=== PATIENT | male | born 1970 | race Caucasian/White ===

== ENCOUNTER 2016-12-24 15:10 | Emergency (ER) | payer OTHER, MEDICAID ==
[2016-12-24 15:37] VITALS: RESP 16; TEMP 98.2
[2016-12-24] MEDS ORDERED: Albuterol-Ipratrop 3 mg / 0.5 (3 ml) UD INH STA (16:04)
[2016-12-24] MEDS ORDERED: Sodium Chloride 0.9% 1,000 ML IV STA (16:04)
--- NOTE | 2016-12-24 16:10 | ED PDOC ---
HPI: CCC, URI, Sore Throat Time Seen by Provider: 12/24/16 15:46 Chief Complaint (Nursing): Cough, Cold, Congestion Chief Complaint (Provider): cough History Per: Patient Additional Complaint(s): 46 year old male with history of HIV (compliant with daily meds) presents to ED with cough for 2 weeks. Patient has chest pain when excessively coughing but denies chest pain otherwise. No recent travel or known sick contacts. Patient states initially for the first few days, cough was productive of yellow and green sputum but over the past few days, cough has been dry. Patient states he has had subjective fever but has not measured temp. Past Medical History Reviewed: Historical Data Vital Signs: Last Vital Signs Temp 98.2 F 12/24/16 15:34 Pulse 72 12/24/16 15:34 Resp 16 12/24/16 15:34 BP 140/66 12/24/16 15:34 Pulse Ox 100 12/24/16 18:13 - Medical History PMH: Anxiety, Bipolar Disorder, Depression, HIV, Hypercholesterolemia - Surgical History Other surgeries: right knee surgery - Family History Family History: States: No Known Family Hx - Living Arrangements Living Arrangements: With Family - Social History Current smoker - smoking cessation education provided: Yes (1 ppd) Alcohol: Social Drugs: Denies - Home Medications Home Medications: Ambulatory Orders Medication Instructions Recorded Efavirenz/Emtricitab/Tenofovir 1 tab PO DAILY 11/24/15 [Atripla Tablet] Rosuvastatin Calcium [Crestor] 20 mg PO DAILY #0 tab 11/24/15 Doxepin [Sinequan] 100 mg PO HS #0 cap 12/04/15 Sertraline [Zoloft] 50 mg PO DAILY #14 tab 12/04/15 Sertraline [Zoloft] 100 mg PO DAILY #14 tab 12/04/15 Albuterol HFA [Ventolin HFA 90 1 puff IH ASDIR #1 unit 12/24/16 mcg/actuation (8 g)] Benzonatate 200 mg PO TID PRN #20 capsule 12/24/16 Levofloxacin [Levaquin] 500 mg PO DAILY #7 tablet 12/24/16 - Allergies Allergies/Adverse Reactions: Allergies Allergy/AdvReac Type Severity Reaction Status Date / Time efavirenz [From Sustiva] Allergy RASH Verified 12/24/16 15:34 morphine Allergy RASH Verified 12/24/16 15:34 Curb-65 Severity Score - CURB-65 Severity Score Confusion: No Respiratory Rate greater than/equal to 30: No Systolic BP <90 or Diastolic BP less than/equal 60mmHg: No Age >64: No Curb-65 Score: 0 Percentage 30-day mortality: 0.6% Review of Systems ROS Statement: Except As Marked, All Systems Reviewed And Found Negative Constitutional: Positive for: Fever (subjective, not measured) Cardiovascular: Positive for: Chest Pain (due to cough) Respiratory: Positive for: Cough, Sputum Gastrointestinal: Negative for: Nausea, Vomiting Neurological: Negative for: Headache, Dizziness Physical Exam - Reviewed Nursing Documentation Reviewed: Yes Vital Signs Reviewed: Yes - Physical Exam Appears: Positive for: Well, Non-toxic, No Acute Distress Head Exam: Positive for: ATRAUMATIC, NORMAL INSPECTION Skin: Negative for: Rash Eye Exam: Positive for: Normal appearance, EOMI, PERRL ENT: Positive for: Normal ENT Inspection Cardiovascular/Chest: Positive for: Regular Rate, Rhythm Respiratory: Positive for: Wheezing. Negative for: Accessory Muscle Use, Rales , Rhonchi, Respiratory Distress Gastrointestinal/Abdominal: Positive for: Soft. Negative for: Tenderness, Distended, Guarding, Rebound Back: Negative for: L CVA Tenderness, R CVA Tenderness Neurologic/Psych: Positive for: Alert, Oriented - Laboratory Results Result Diagrams: 12/24/16 16:18 12/24/16 16:18 - ECG Interpretation Of ECG: NSR 62 bpm, no acute finding, reviewed by PA and ED attending. O2 Sat by Pulse Oximetry: 100 Pulse Ox Interpretation: Normal - Other Rad CXR X-Ray: Interpreted by Me, Viewed By Me X-Ray Interpretation: no acute finding Nebulizer Treatments/Peak Flow - Duonebs Number of Bronchodilator Doses given?: 1 (duoneb) - Steroid Treatment Steroid: Not Clinically Indicated - Clinical Response Clinical Response: Improved Medical Decision Making Medical Decision Makin46 year old with cough for 2 weeks Plan: CXR EKG CBC CMP Blood cultures IVF Duoneb x 1 Patient is aware of all diagnostic testing results, all questions answered. Patient given prescriptions for Levaquin, Ventolin inhaler and Tessalon Perles. He was advised to drink plenty of fluids and take NSAIDs for fever and bodyaches as needed. Patient was instructed to follow up with PMD in 1-2 days and he is aware he can RTED at any time if acutely worse. Disposition - Clinical Impression Clinical Impression: Bronchitis - Patient ED Disposition Is Patient to be Admitted: No Counseled Patient/Family Regarding: Studies Performed, Diagnosis, Need For Followup, Rx Given - Disposition Referrals: Hossein Linton MD [Family Provider] - Disposition: Routine/Home Disposition Time: 18:12 Condition: STABLE Additional Instructions: Take prescription medications as directed. [id number] Tylenol or Advil as needed for fever and body aches. Rest and drink plenty of fluids. Follow-up with primary doctor in 2-3 days. Prescriptions: Albuterol HFA [Ventolin HFA 90 mcg/actuation (8 g)] 1 puff IH ASDIR #1 unit Benzonatate 200 mg PO TID PRN #20 capsule PRN Reason: Cough Levofloxacin [Levaquin] 500 mg PO DAILY #7 tablet Instructions: Acute Bronchitis (ED) Forms: [facility] ED School/Work Excuse Results - Lab Results Lab Results: 12/24/16 12/24/16 16:18 16:18 WBC 4.8 RBC 4.73 Hgb 14.0 Hct 41.6 MCV 87.9 D MCH 29.5 MCHC 33.6 RDW 14.8 H Plt Count 221 MPV 7.7 Neut % (Auto) 60.1 Lymph % (Auto) 21.1 Cooke % (Auto) 8.6 Eos % (Auto) 9.7 H Baso % (Auto) 0.5 Neut # 2.9 Lymph # 1.0 Cooke # 0.4 Eos # 0.5 Baso # 0.0 Sodium 143 Potassium 4.0 Chloride 108 H Carbon Dioxide 24 Anion Gap 15 BUN 19 Creatinine 0.9 Est GFR ( Amer) > 60 Est GFR (Non-Af Amer) > 60 Random Glucose 98 Calcium 9.7 Total Bilirubin 0.2 AST 31 ALT 51 Alkaline Phosphatase 53 Total Protein 7.1 Albumin 4.0 Globulin 3.1 Albumin/Globulin Ratio 1.3
--- NOTE | 2016-12-24 16:44 | RAD ---
HISTORY: cough COMPARISON: Chest x-ray performed 11/24/15 TECHNIQUE: Chest PA and lateral FINDINGS: LUNGS: No focal consolidation. Please note that chest x-ray has limited sensitivity for the detection of pulmonary masses. PLEURA: No significant pleural effusion identified. No definite pneumothorax . CARDIOVASCULAR: The cardiomediastinal silhouette appears within normal limits of size. OSSEOUS STRUCTURES: No acute osseous abnormality identified. VISUALIZED UPPER ABDOMEN: Unremarkable. OTHER FINDINGS: None. IMPRESSION: No focal consolidation, significant pleural effusion, or definite pneumothorax identified.
[2016-12-24 16:47] LABS: BASO % 0.5 % (0.0-2.0); EOS # 0.5 K/uL (0.0-0.7); EOS % 9.7 % (0.0-4.0); HEMATOCRIT 41.6 % (35.0-51.0); LYMPH % 21.1 % (20.0-40.0); MEAN CELL VOLUME 87.9 fl (80.0-94.0); MEAN CORPUSCULAR HEMOGLOBIN 29.5 pg (27.0-31.0); MEAN CORPUSCULAR HGB CONC 33.6 g/dL (33.0-37.0); MEAN PLATELET VOLUME 7.7 fl (7.2-11.7); MONO # 0.4 K/uL (0.0-0.8); MONO % 8.6 % (0.0-10.0); NEUT # 2.9 K/uL (1.8-7.0); NEUT % 60.1 % (50.0-75.0); NRBC % 0.1 % (0.0-0.0); RED CELL DISTRIBUTION WIDTH 14.8 % (11.5-14.5); WHITE BLOOD COUNT 4.8 K/uL (4.8-10.8)
[2016-12-24 17:12] LABS: ALB/GLOB RATIO 1.3 (1.0-2.1); ALKALINE PHOSPHATASE 53 U/L (38-126); ALT/SGPT 51 U/L (21-72); AST/SGOT 31 U/L (17-59); BILIRUBIN,TOTAL 0.2 mg/dl (0.2-1.3); BLOOD UREA NITROGEN 19 mg/dl (9-20); CALCIUM 9.7 mg/dL (8.4-10.2); CARBON DIOXIDE 24 mmol/L (22-30); CHLORIDE 108 mmol/L (98-107); GFR AFRICAN-AMERICAN > 60; GLUCOSE,RANDOM 98 mg/dL (75-110); SODIUM 143 mmol/l (132-148); TOTAL PROTEIN 7.1 G/DL (6.3-8.2)
[2016-12-24 19:04] VITALS: BP 113/63; PULSE 57; O2SAT 99
--- NOTE | 2016-12-26 07:23 | CARD ---
APPROVED REPORT EKG Measurement Heart [id number] <Conclusion> Normal sinus rhythm Normal ECG
== END 2016-12-24 18:25 | disposition home or self-care (01) ==
LOC: H.ER 15:10
DX: J06.9 Acute upper respiratory infection, unspecified (principal); R05 Cough